=== PATIENT | male | born 1990 | race Two or more races ===

== ENCOUNTER 2022-07-08 14:32 | Emergency (ER) | payer OTHER ==
[~2022-07-08] VITALS: Ht 167.6 cm; Wt 77.6 kg
== END 2022-07-08 18:10 | disposition home or self-care (01) ==
LOC: ER 14:32
DX: S51.821A Laceration with foreign body of right forearm, initial encounter (principal); W25.XXXA Contact with sharp glass, initial encounter; Y93.9 Activity, unspecified; Y92.9 Unspecified place or not applicable